=== PATIENT | female | born 1935 | race Caucasian/White ===

== ENCOUNTER → 2016-10-31 | Outpatient (CLI) | payer MEDICARE ==
[~2016-10-31] MED LIST: AROMASIN25 MG PO; GLUCOPHAGE1000 MG PO; GLUCOTROL XL10 MG PO; HALFPRIN81 MG PO; NEURONTIN300 MG PO; PROLIA60 MG/1 ML INJECT; ULTRAM50 MG PO; VALSARTAN-HCTZ1 EACH PO
== END | disposition short-term general hospital (02) ==
LOC: CLONCO 10-30 11:08
DX: Z08 Encounter for follow-up examination after completed treatment for malignant neoplasm (principal); Z85.3 Personal history of malignant neoplasm of breast; R06.02 Shortness of breath; R73.9 Hyperglycemia, unspecified; R09.89 Other specified symptoms and signs involving the circulatory and respiratory systems; J98.4 Other disorders of lung; Z90.11 Acquired absence of right breast and nipple

== ENCOUNTER 2016-11-07 15:29 | Inpatient (IN) | payer MEDICARE ==
[~2016-11-07] VITALS: Ht 152.4 cm; Wt 111.6 kg
[2016-11-08] MEDS ORDERED: GLUCOTROL XL10 MG PO (08:02)
[2016-11-08] MEDS ORDERED: ULTRAM50 MG PO (08:02)
[2016-11-08] MEDS ORDERED: GLUCOPHAGE1000 MG PO (08:03)
[2016-11-08] MEDS ORDERED: HALFPRIN81 MG PO (08:03)
[2016-11-08] MEDS ORDERED: AROMASIN25 MG PO (08:03)
[2016-11-08] MEDS ORDERED: NEURONTIN300 MG PO (08:04)
[2016-11-08] MEDS ORDERED: VALSARTAN-HCTZ1 EACH PO (08:04)
[2016-11-08] MEDS ORDERED: PROLIA60 MG/1 ML INJECT (08:06)
== END 2016-11-09 10:46 | disposition short-term general hospital (02) | DRG 198 ==
LOC: IP 15:29
PROVIDERS: ADMIT Family Medicine
PROC: B246ZZZ Ultrasonography of Right and Left Heart (ICD-10-PCS; principal; 2016-11-08)
DX: J84.9 Interstitial pulmonary disease, unspecified (principal); R09.02 Hypoxemia; I10 Essential (primary) hypertension; M19.90 Unspecified osteoarthritis, unspecified site; N39.46 Mixed incontinence; E11.42 Type 2 diabetes mellitus with diabetic polyneuropathy; R06.89 Other abnormalities of breathing
CPT/HCPCS: J1650; J1940; J2765; J2930; J8499; Q9967